=== PATIENT | female | born 1955 | race Caucasian/White ===

== ENCOUNTER 2017-03-21 21:21 | Emergency (ER) | payer MEDICAID ==
[~2017-03-21] VITALS: Ht 157.5 cm; Wt 80.0 kg
[~2017-03-21 21:21] MED LIST: CLOP75TA33 PO; FURO40TA5 PO; HUM10VIA8 SQ; INSULIN; LOSA25TA12 PO; METF10002 PO; METF500T4; OMEP20CA10 PO; POTASSIUM
[2017-03-21] MEDS ORDERED: ACETAMINOPHEN 325MG TABLET PO ONE (23:00)
[2017-03-22 02:55] VITALS: BP 115/71
== END 2017-03-22 02:55 | disposition home or self-care (01) ==
LOC: ER 22:53
DX: R51 Headache (principal); I10 Essential (primary) hypertension; E11.9 Type 2 diabetes mellitus without complications; E78.00 Pure hypercholesterolemia, unspecified; Z91.14 Patient's other noncompliance with medication regimen; Z79.4 Long term (current) use of insulin; Z86.73 Personal history of transient ischemic attack (TIA), and cerebral infarction without residual deficits; Z86.69 Personal history of other diseases of the nervous system and sense organs
CPT/HCPCS: 70450; 99284; Z7610